=== PATIENT | female | born 1980 | race Caucasian/White ===

== ENCOUNTER 2023-09-13 17:29 | Emergency (ER) | payer OTHER ==
[~2023-09-13] VITALS: Ht 175.3 cm; Wt 72.5 kg
[2023-09-13 17:33] VITALS: BP 126/79
[2023-09-13 18:14] VITALS: BP 128/68
[2023-09-13 18:15] VITALS: BP 132/81
[2023-09-13 22:26] VITALS: BP 132/81
== END 2023-09-13 22:26 | disposition home or self-care (01) | DRG 605 ==
LOC: ED 17:29
DX: S40.212A Abrasion of left shoulder, initial encounter (principal); S70.211A Abrasion, right hip, initial encounter; M25.532 Pain in left wrist; M25.531 Pain in right wrist; M25.562 Pain in left knee; V53.6XXA Passenger in pick-up truck or van injured in collision with car, pick-up truck or van in traffic accident, initial encounter